=== PATIENT | male | born 1970 | race Caucasian/White ===

== ENCOUNTER 2021-06-21 10:15 | Emergency (ER) | payer BC, SELFPAY ==
[2021-06-21 10:43] VITALS: BP 168/96; PULSE 88; RESP 20; TEMP 36.7; O2SAT 98
[2021-06-21 11:00] VITALS: BP 162/92
--- NOTE | 2021-06-21 11:10 | ED.URI ---
HPI - URI/Sore Throat General Chief Complaint: Upper Respiratory Infection Stated Complaint: Sore Throat and Mouth Time Seen by Provider: 06/21/21 11:10 Source: patient Mode of arrival: ambulatory Limitations: no limitations History of Present Illness HPI Narrative: Pepe Bradley is a 51 yo male with no PMH (as he does not go to the doctor) who comes to [facility] with mild cough but more severe sore throat that is been going on for 4 to 5 days. He has been treating himself as if he has a cold but then looked in the mirror and saw all these pus pockets in the back of his throat and said he should come in to be treated Related Data Allergies Allergy/AdvReac Type Severity Reaction Status Date / Time No Known Allergies Allergy Mild Verified 08/15/08 00:56 Review of Systems Review of Systems: CONSTITUTIONAL: Denies fever, chills, sweats. EYES: Denies visual changes, redness, discharge. ENT: Denies rhinorrhea, mild congestion, has sore throat, no otalgia. CARDIOVASCULAR: Denies chest pain, palpitations, edema. RESPIRATORY: Denies dyspnea, wheezing, cough GASTROINTESTINAL: Denies abdominal pain, nausea, vomiting, diarrhea. GENITOURINARY: Denies dysuria, hematuria, abnormal discharge SKIN: Denies rash or itching. NEUROLOGIC: Denies numbness, or focal weakness. PSYCHIATRIC: Denies anxiety or depression. PMFSH Past Medical History Medical History No acute medical problems Family History Family History Other Hypertension Social History Social History (Updated 06/21/21 @ 11:17 by Ame Martinez CNP) Smoking status: Never smoker Alcohol intake: current Comments At time of signature, I agree with nursing past medical, surgical, social and family history. There is no relevant family history pertinent to the presenting complaint. His blood pressure is elevated and probably needs to be on blood pressure medication. Discussed this with patient and the consequences of not getting on blood pressure medication. He has a referral list from his work work that he can choose a physician Exam Narrative: GENERAL: This is a well-nourished, well-developed patient, in mild distress. HEAD: normocephalic, atraumatic. EYES: Sclera clear/white. Vision is grossly intact. EARS: External ears normal, auditory canals clear and without drainage, TMs normal without perforation. Hearing grossly intact. NOSE: External nose normal without nasal discharge, nares without redness, no rhinorrhea. THROAT: Mucous membranes moist, posterior pharynx erythema with white pockets of pus throughout his posterior pharynx; difficulty swallowing NECK: Neck supple, non-tender CARDIOVASCULAR: Regular rate and rhythm without murmurs, gallops, or rubs. RESPIRATORY: Clear to auscultation. Breath sounds equal bilaterally. No wheezes, rales, or rhonchi. GASTROINTESTINAL: Abdomen soft, non-tender, SKIN: warm, intact with no suspicious lesions or rash, good texture and turgor. NEURO: awake, alert, and oriented to person, place and time. There were no obvious focal neurologic abnormalities. Steady gait EXTREMITIES: Normal range of motion. BACK: Nontender without deformity Course Course Emergency Course: Patient here for complaints of upper respiratory symptoms but has a very sore throat difficulty swallowing Strep test negative is sent for culture-based on physical exam patient treated regardless Treated with amoxicillin 875 mg 1 twice daily and viscous lidocaine to use 3 times daily for eating-discussed control and also reminded patient to follow-up for blood pressure Vital Signs Vital signs: Vital Signs Temperature 98.0 F 06/21/21 10:43 Pulse Rate 88 06/21/21 10:43 Respiratory Rate 20 06/21/21 10:43 Blood Pressure 168/96 H 06/21/21 10:43 Pulse Oximetry 98 06/21/21 10:43 Temperature 98.0 F 06/21/21 10:43 Pulse Rate 88
== END 2021-06-21 11:41 | disposition home or self-care (01) ==
PROVIDERS: Emergency Provider Nurse Practitioner
DX: J02.9 Acute pharyngitis, unspecified (principal)
CPT/HCPCS: 87081; 87880; 99213; G0463

== ENCOUNTER 2022-08-28 21:48 | Inpatient (IN) | payer BC, SELFPAY ==
--- NOTE | ~2022-08-28 | XR_ITS ---
EXAMINATION: XR chest 1V DATE: 08/28/2022 22:10 INDICATION: Left chest pain. TECHNIQUE: A single frontal view of the chest was obtained. COMPARISON: None. FINDINGS: The chest demonstrates clear lungs without pneumonia, pleural effusion, or pneumothorax. Th e heart size is normal. IMPRESSION: 1. No acute cardiopulmonary disease. Reviewed, dictated and finalized at location A. ER
--- NOTE | 2022-08-28 21:49 | ECG_ITS ---
Measurements Intervals [place] Rate: 87 P: 50 NH: 176 QRS: 5 QRSD: 99 T: 94 QT: 347 QTc: 418 Interpretive Statements SINUS RHYTHM ANTERIOR INFARCT, AGE INDETERMINATE ST-T WAVE ABNORMALITY IN HIGH LATERAL LEADS- CONSIDER ISCHEMIA BASELINE ARTIFACT- I, III, AVR, AVL, V2 ABNORMAL ECG NO PREVIOUS ECG AVAILABLE FOR COMPARISON Electronically Signed On 08-30-2022 16:15:55 ROUTE DELIVERY SERVICE DRIVER by Pawel Johnson D.O.
[2022-08-28 21:58] VITALS: BP 154/94; PULSE 94; RESP 16; TEMP 36.2; O2SAT 99
[2022-08-28 22:01] LABS: Basophils Percent Auto 0.3 % (0.2-1.2); Eosinophils Absolute Auto 0.1 K/mm3 (0-0.3); Eosinophils Percent Auto 1.1 % (0-4.4); Hematocrit 49.8 % (42.0-52.0); Hemoglobin 16.8 g/dL (14.0-18.0); Immature Granulocyte Absolute 0.02 K/mm3 (0.00-0.031); Immature Granulocyte Percent A 0.2 % (0-0.5); Lymphocytes Absolute Auto 6.23 K/mm3 (0.9-3.2); Lymphocytes Percent Auto 57.4 % (18.3-44.2); Mean Corpuscular HGB Conc 33.7 g/dl (32-36); Mean Corpuscular Hemoglobin 32.7 pg (26-34); Mean Corpuscular Volume 96.9 fl (80-100); Monocytes Absolute Auto 1.1 K/mm3 (0.1-0.6); Monocytes Percent Auto 9.9 % (2.6-8.5); Neutrophils Absolute Auto 3.4 K/mm3 (1.3-6.7); Neutrophils Percent Auto 31.1 % (45.5-73.1); Platelet Count Result 250 k/mm3 (150-375); Red Blood Count 5.14 M/mm3 (4.6-6.20); Red Cell Distribution Width 12.6 % (11.5-14.5); White Blood Count 10.9 K/mm3 (4.5-10.0)
[2022-08-28 22:12] LABS: Atypical Lymphocytes Present; Platelet Estimate Adequate (Adequate); Prothrombin Time 12.6 Seconds (11.1-14.7); Schistocytes None Seen (NORMAL)
[2022-08-28 22:13] LABS: Alanine Aminotransferase 28 U/L (6-50); Alkaline Phosphatase 92 U/L (38-126); Anion Gap 17 mmol/L (8-16); Aspartate Amino Transferase 32 U/L (17-59); Bilirubin,Total 0.6 mg/dL (0.2-1.3); Blood Urea Nitrogen 13 mg/dL (9-20); Calcium 8.7 mg/dL (8.4-10.2); Carbon Dioxide 23 mmol/L (22-30); Chloride 102 mmol/L (98-107); Estimated CRCL calculation 161 ml/min; Estimated Glomerular Filt Rate > 60; Glucose 139 mg/dL (65-110); Lipase 122 U/L (23-300); Partial Thromboplastin Time 26.3 SECONDS (22.3-36.8); Potassium 3.8 mmol/L (3.4-5.0); Sodium 142 mmol/L (137-145)
[2022-08-28 22:24] LABS: Troponin I < 0.012 ng/mL (0.000-0.034)
[2022-08-28 23:50] VITALS: BP 135/82; PULSE 85; RESP 16; TEMP 36.6; O2SAT 98
[2022-08-29] VITALS (54 sets, daily range): BP systolic 101–147; BP diastolic 59–88; PULSE 75–123; RESP 12–33; TEMP 36.2–36.9; O2SAT 91–100; BMI 41.3
--- NOTE | 2022-08-29 00:31 | ED.CHESTPAIN ---
HPI - Chest Pain General Chief Complaint: Chest Pain Stated Complaint: chest pain, radiated to left side, ASA taken Time Seen by Provider: 08/29/22 00:13 History of Present Illness HPI narrative: 52-year-old male with history of diabetes, HIV and hypertension presented to the emergency department for evaluation of left-sided chest pain. Patient states that approximate 915 he had onset of left-sided chest pain that radiated to his left arm. Patient states he did have some associated nausea and diaphoresis. Patient does have a history of hypertension, diabetes and is HIV positive. Patient denies any prior history of heart disease. Related Data Home Medications Medication Instructions Recorded Confirmed atorvastatin 20 mg tablet 20 mg PO HS 08/29/22 08/29/22 elviteg 150 mg-cob 150 mg-emtricit 1 tablet PO DAILY 08/29/22 08/29/22 200 mg-tenofo alafenam 10 mg tablet (Genvoya) empagliflozin 25 mg tablet 25 mg PO DAILY 08/29/22 08/29/22 (Jardiance) ibuprofen 800 mg tablet 800 mg PO Q6-8H PRN Pain (Scale 08/29/22 08/29/22 Score 1-3) losartan 100 mg tablet 100 mg PO HS 08/29/22 08/29/22 metformin 500 mg tablet,extended 1,000 mg PO HS 08/29/22 08/29/22 release 24 hr multivit with minerals-iron 18 1 tablet PO DAILY 08/29/22 08/29/22 mg-folic ac 400 mcg-vit K 25 mcg tablet (Adults Multivitamin) semaglutide 0.25 mg or 0.5 mg (2 0.5 mg subcut WEEKLY 08/29/22 08/29/22 mg/1.5 mL) subcutaneous pen injector (Ozempic) Allergies Allergy/AdvReac Type Severity Reaction Status Date / Time hydralazine AdvReac Intermediate Palpitation Verified 08/29/22 04:40 s Review of Systems Review of Systems: CONSTITUTIONAL: Denies fever, chills, or sweats. EYES: Denies visual changes, redness, or discharge. ENT: Denies rhinorrhea, congestion, sore throat, or otalgia. CARDIOVASCULAR: See HPI RESPIRATORY: Denies cough or dyspnea. GASTROINTESTINAL: Denies abdominal pain, nausea, vomiting, or diarrhea. GENITOURINARY: Denies dysuria or hematuria. SKIN: Denies rash or itching. MUSCULOSKELETAL: Denies back pain, joint pain, or myalgia. NEUROLOGIC: Denies headache, numbness, or weakness. PMFSH Past Medical History Medical History Benign essential HTN Diabetes mellitus HIV (human immunodeficiency virus infection) Hypertriglyceridemia Perirectal abscess s/p I&D Suicide attempt 2009 Family History Family History Sibling Diabetes mellitus Father Coronary artery disease Hyperlipidemia Myocardial infarct Heart transplant recipient Hypertension Mother Connolly esophagus GERD (gastroesophageal reflux disease) Social History Social History Social History: Lives alone. Lifelong nonsmoker. Denies alcohol or drug use. Full code. He nominates Minnie, his cousin, to be the individual would make medical decisions for him if he is unable. Smoking status: Never smoker Second hand tobacco smoke exposure: No Alcohol intake: never Substance use: never Substance use type: does not use Lack of Transportation: No Lack of Food: Never True Current Housing: I Have Housing Concerned About Future Housing: No Difficulty Paying Gas/Electric Bills: No Difficulty Paying for Meds: No Currently Unemployed: No Education: Bachelor's Degree Difficulty w/ Childcare or Family Care: No Spiritual care concerns: No Exam Narrative: APPEARANCE: Well appearing, no pain, no distress, well-nourished. HEAD: normocephalic, atraumatic. EYES: PERRLA/EOMI, conjunctivae clear. NOSE: Normal no drainage NECK: Supple. No adenopathy, no masses. RESPIRATORY: Airway patent, respirations nonlabored. Clear to auscultation bilaterally, no rales, rhonchi, wheezing. CARDIOVASCULAR: Regular rate and rhythm without murmurs rubs or gallops. ABDOMINAL: Soft, nontender, nondistend
[2022-08-29] MEDS: ASPIRIN 325 MG TABLET PO (01:02)
[2022-08-29] MEDS: NITROGLYCERIN SL 0.4 MG TABLET SUBLINGUAL ×5 (01:04→09:54)
[2022-08-29] MEDS: MORPHINE SULFATE (*CRX) 4 MG/ML INJ IV PUSH ×2 (01:43→07:33)
--- NOTE | 2022-08-29 01:55 | ECG_ITS ---
Measurements Intervals [place] Rate: 84 P: 54 VA: 168 QRS: 22 QRSD: 109 T: 83 QT: 368 QTc: 437 Interpretive Statements SINUS RHYTHM ANTEROSEPTAL INFARCT, AGE INDETERMINATE CONSIDER INFERIOR INFARCT, AGE INDETERMINATE BORDERLINE ST-T WAVE ABNORMALITY- HIGH LATERAL LEADS BASELINE ARTIFACT- V3 ABNORMAL ECG NO PREVIOUS ECG AVAILABLE FOR COMPARISON Electronically Signed On 08-29-2022 7:01:59 MARKETING DEVELOPMENT MANAGER by Pawel Johnson D.O.
[2022-08-29] MEDS: NITROGLYCERIN OINTMENT 1 INCH DOSE TRANSDERM (02:10)
[2022-08-29] MEDS: carvediloL 6.25 MG TABLET PO (02:13)
[2022-08-29 02:49] LABS: SARS-CoV-2 RNA PCR Negative
[2022-08-29] MEDS: ENOXAPARIN 100 MG/ML SYRINGE SUB-Q (03:23)
[2022-08-29] MEDS: ENOXAPARIN 60 MG/0.6 ML SYRINGE 45 MG SUB-Q (03:23)
[2022-08-29] MEDS: CLOPIDOGREL BISULFATE 300 MG TABLET 600 MG PO (03:23)
--- NOTE | 2022-08-29 04:28 | ADMGEN ---
This patient, Pepe Bradley, was admitted to IMU Room 205-01 on 08/29/22 at 0417. Patient/family oriented to hospital policies and general routines including ID bracelet, bed and alarms, visiting hours, pain management, procedures, bathroom and other care routines, personal items, smoking policy, room service/diet, and visiting hours. Information on how to activate the Rapid Response Team has been discussed. Patient/Family are encouraged to report perceived risks to care and to ask questions if they do not understand what they are told or what they should do.
--- NOTE | 2022-08-29 07:30 | ECG_ITS ---
Measurements Intervals [place] Rate: 87 P: 60 RI: 176 QRS: 19 QRSD: 103 T: 78 QT: 349 QTc: 422 Interpretive Statements SINUS RHYTHM VENTRICULAR PREMATURE COMPLEXES ANTEROSEPTAL INFARCT, AGE INDETERMINATE CONSIDER INFERIOR INFARCT, AGE INDETERMINATE BORDERLINE T WAVE ABNORMALITY- HIGH LATERAL LEADS BASELINE ARTIFACT- I, III, AVR, AVL, AVF, V2 ABNORMAL ECG COMPARED TO ECG 08/29/2022 02:01:04 NO SIGNIFICANT CHANGES Electronically Signed On 08-29-2022 14:52:37 FORKLIFT TRUCK OPERATOR by Pawel Johnson D.O.
--- NOTE | 2022-08-29 07:44 | PM.IMHP ---
H&P: HPI History of Present Illness Date/Time: 08/29/22 07:44 Chief Complaint: Chest pain Narrative: 52yo male with DM, HIV and HTN here for chest pain. Patient, while lying in bed, developed chest pressure. This was not associated with exertion. He had nausea with dry heaves. Pain radiated up into his left shoulder. Also states left arm became numb. He was diaphoretic but denies shortness of breath. Chest pain was not pleuritic, palpable or positional. He does not exercise but does do heavy lifting at work and denies any recent complaints of chest pain or shortness of breath. Fernando has no history of coronary disease but does have diabetes, hypertension, hyperlipidemia and family history for early coronary disease. Pain waxed and waned with episodes of spiking pain. No myalgias. He denies headache, vision changes, hearing changes, odynophagia, dysphagia, abdominal pain, cough, diarrhea, constipation, dysuria, hematuria, homicidal or suicidal ideation, numbness/tingling /weakness in his arms or legs prior to the onset of his chest pain. he took aspirin without benefit. He presented to the emergency room for evaluation. In the emergency room he was mildly tachypneic but otherwise vital signs were stable. White count was 11 K with predominant lymphocytosis. PT, PTT and D-dimer all were normal. Glucose was 139 otherwise comprehensive metabolic panel was normal. Troponin was initially normal but has climbed to 1.6. COVID was negative. Chest x-ray was clear. EKG showing normal sinus rhythm, possible old anteroseptal and inferior infarct. He had borderline ST T wave changes in high lateral leads. He was treated with nitroglycerin and aspirin. Pain improved. Morphine was given and his pain resolved. He was given Coreg and loading dose of Plavix and Lovenox. Cardiology was consulted. Patient was admitted for further care. Review of Systems Review of Systems: Patient checks his blood pressure twice a week and running 130/70. This is after his losartan was increased about a month ago. Patient also states that his metformin was increased and Jardiance was added about a month ago. Since that time his glucose has improved 120-140 range that he checks most in the morning. All systems reviewed & are unremarkable except as noted in HPI and below [facility] Past Medical History Medical History (Updated 08/29/22 @ 09:15 by Madi Ely MD) Benign essential HTN Diabetes mellitus HIV (human immunodeficiency virus infection) Hypertriglyceridemia Perirectal abscess s/p I&D Suicide attempt 2009 Family History Family History Sibling Diabetes mellitus Father Coronary artery disease Hyperlipidemia Myocardial infarct Heart transplant recipient Hypertension Mother Connolly esophagus GERD (gastroesophageal reflux disease) Social History Social History (Updated 08/29/22 @ 09:16 by Madi Ely MD) Social History: Lives alone. Lifelong nonsmoker. Denies alcohol or drug use. Full code. He nominates Minnie, his cousin, to be the individual would make medical decisions for him if he is unable. Smoking status: Never smoker Second hand tobacco smoke exposure: No Alcohol intake: never Substance use: never Substance use type: does not use Lack of Transportation: No Lack of Food: Never True Current Housing: I Have Housing Concerned About Future Housing: No Difficulty Paying Gas/Electric Bills: No Difficulty Paying for Meds: No Currently Unemployed: No Education: Bachelor's Degree Difficulty w/ Childcare or Family Care: No Spiritual care concerns: No Meds Home Medications and Allergies Home Medications Medication Instructions Recorded Confirmed Type atorvastatin 20 mg tablet 20 mg PO HS 08/29/22 08/29/22 History elviteg 150 mg-cob 150 mg-emtricit 1 tablet PO DAILY 08/29/22 08/29/22 History 200 mg-tenofo alafenam 10 mg
--- NOTE | 2022-08-29 07:49 | PM.CNCAR ---
Assessment and Plan Assessment and plan (1) Acute non-ST elevation myocardial infarction (NSTEMI): Code(s): I21.4 - Non-ST elevation (NSTEMI) myocardial infarction Status: Acute Plan This is a 52-year-old man with hypertension non insulin-dependent diabetes and dyslipidemia presenting with acute coronary syndrome. His ECG is not concerning as far as acute injury is concerned. He does have poor R-wave progression in the precordial leads but no significant ST segment deviation. Despite treating him with aspirin, nitrates beta-blockers and Lovenox he is having recurrent chest heaviness this morning. His troponin level is also rising moderately. I will at this time plan for coronary angiography a little later today. We would prefer this verses waiting until Wednesday given his recurrent symptoms and rising troponin. Further recommendations will be forthcoming of course following completion of his angiograms. Juwan Cardenas MD [facility] History of Present Illness History of Present Illness Consult date/time: 08/29/22 07:49 Consult reason: chest pain Reason For Visit: NSTEMI Narrative: This is a 52-year-old man I am seeing at the request of the hospitalist with the clinical diagnosis of acute coronary syndrome/non ST elevation TN. The patient is not known to have heart disease prior to this and is unknown to me prior to this consultation this morning. He has began to experience symptoms of chest pain last night while he was at home. He had gone to bed early and it was something like 9:00 p.m. last night when he was lying in bed before he fell asleep and he was starting to notice the onset of some substernal pressure-like chest pain after short time with some radiation into the left arm and some symptoms of nausea. He was dry heaving but nothing came up from his stomach. Was not really having any shortness of breath or diaphoresis. He noticed the symptoms to be of some concern so he got up and drove himself to the emergency room after short time. In the emergency room he was evaluated his electrocardiogram did not show any acute ST segment deviation and he was treated with aspirin, nitrates, morphine and had significant improvement in his pain with near resolution. He was admitted to the IMU and is being seen this morning. His troponin levels have risen from essentially normal up to 1.5 this morning. This morning he is reporting that the sense of pressure in the chest is slowly/gradually building again he does not appear to be in any distress been and not rates the pain about 5/10 of this severity scale. In this setting he is being seen in consultation. He describes no prior history of exertional chest symptoms he is single gentleman who works at [employer] his job does require some significant physical exertion he does not notice any difficulty with chest discomfort or dyspnea that is triggered by activity. He is known to have hypertension and dyslipidemia and non insulin-dependent diabetes. His diabetes is a recent diagnosis and he takes metformin and Januvia for that. Last night when I was called about this in the emergency room he was given a therapeutic dose of Lovenox as well as 600 mg of clopidogrel as well. Review of Systems Constitutional: Constitutional: Reports no additional constitutional complaints Eyes: Eyes: Reports no additional eye complaints ENT: Reports system reviewed and no additional complaints, except as documented Cardiovascular: Cardiovascular: Reports as per HPI Respiratory: Respiratory: Reports no additional respiratory complaints Gastrointestinal: Gastrointestinal: Reports no additional gastrointestinal complaints Musculoskeletal: Musculoskeletal: Reports no additional musculoskeletal complaints Integumentary/Breasts: Skin/Breast: Reports system reviewed and no additional complaints, except as docu Neurologic: Reports system reviewed and no additional complaints, except as documented Endocrine: Endo
[2022-08-29] MEDS: ASPIRIN 81 MG CHEWABLE TABLET PO (08:22)
--- NOTE | 2022-08-29 10:35 | WPDMODSED ---
Moderate Sedation Note-Pt Data Patient Data Diagnosis: non ST-elevation IA Present Complaint: chest pain Procedure to be performed/Plan: left heart catheterization Allergies Allergy/AdvReac Type Severity Reaction Status Date / Time hydralazine AdvReac Intermediate Palpitation Verified 08/29/22 04:40 s Home Medications Medication Instructions Recorded Confirmed Type atorvastatin 20 mg tablet 20 mg PO HS 08/29/22 08/29/22 History elviteg 150 mg-cob 150 mg-emtricit 1 tablet PO DAILY 08/29/22 08/29/22 History 200 mg-tenofo alafenam 10 mg tablet (Genvoya) empagliflozin 25 mg tablet 25 mg PO DAILY 08/29/22 08/29/22 History (Jardiance) ibuprofen 800 mg tablet 800 mg PO Q6-8H PRN Pain (Scale 08/29/22 08/29/22 History Score 1-3) losartan 100 mg tablet 100 mg PO HS 08/29/22 08/29/22 History metformin 500 mg tablet,extended 1,000 mg PO HS 08/29/22 08/29/22 History release 24 hr multivit with minerals-iron 18 1 tablet PO DAILY 08/29/22 08/29/22 History mg-folic ac 400 mcg-vit K 25 mcg tablet (Adults Multivitamin) semaglutide 0.25 mg or 0.5 mg (2 0.5 mg subcut WEEKLY 08/29/22 08/29/22 History mg/1.5 mL) subcutaneous pen injector (Ozempic) Current Medications: Active Medications Aspirin (Aspirin 81 Mg Chewable Tablet) 81 mg PO DAILY@0800 [facility] Last Admin: 08/29/22 08:22 Dose: 81 mg Atorvastatin Calcium (Atorvastatin 20 Mg Tablet) 20 mg PO HS [facility] Dextrose (Dextrose 50% 25 Gm/50 Ml Syringe) 12.5 gm IV PUSH PRN PRN; Protocol PRN Reason: Hypoglycemia Empagliflozin (Empagliflozin 25 Mg Tablet) 25 mg PO DAILY [facility] Glucagon (Glucagon For Inj 1 Mg Vial) 1 mg IM PRN PRN; Protocol PRN Reason: Hypoglycemia Glucose (Glucose Oral Gel 15 Gm Of Glucse In 37.5 Gm Tube) 15 gm PO PRN PRN; Protocol PRN Reason: Hypoglycemia Dextrose (Dextrose 5% 1,000 Ml) 1,000 mls @ 100 mls/hr IVPB PRN PRN; Protocol PRN Reason: Hypoglycemia Insulin Aspart (Insulin Aspart (*Bkc) 100 Units/Ml) 4 - 8 units SUB-Q TIDWM LEXIE; Protocol Miscellaneous Information (Genvoya Is Nonformulary - Please Have Patient Bring From Home) 0 each XX CLARIFY [facility]EXIE Stop: 09/28/22 00:00 Morphine Sulfate (Morphine Sulfate (*Crx) 4 Mg/Ml Inj) 4 mg IV PUSH Q2H PRN PRN Reason: Pain Rated 7-10 Last Admin: 08/29/22 07:33 Dose: 4 mg Multivitamins/Minerals (Multivitamins /C Lutein (Centrum Silver) Tablet *Bkc) 1 tab PO DAILY [facility] Nitroglycerin (Nitroglycerin Sl 0.4 Mg Tablet) 0.4 mg SUBLINGUAL Q5MIN PRN PRN Reason: Chest Pain Last Admin: 08/29/22 09:54 Dose: 0.4 mg Non-Formulary Medication (Qsancgc-Sat-Wwfia-Tenof Alafen [Genvoya]) 1 tablet PO DAILY [facility] Stop: 09/29/22 08:59 Ondansetron HCl (Ondansetron Inj 4 Mg/2 Ml Vial) 4 mg IV PUSH Q4H PRN PRN Reason: Nausea Sedation/Anesthesia: No previous sedation/anesthesia problems (including family history). [facility] Past Medical History Medical History (Updated 08/29/22 @ 09:15 by Madi Ely MD) Benign essential HTN Diabetes mellitus HIV (human immunodeficiency virus infection) Hypertriglyceridemia Perirectal abscess s/p I&D Suicide attempt 2009 Family History Family History Sibling Diabetes mellitus Father Coronary artery disease Hyperlipidemia Myocardial infarct Heart transplant recipient Hypertension Mother Connolly esophagus GERD (gastroesophageal reflux disease) Social History Social History (Updated 08/29/22 @ 09:16 by Madi Ely MD) Social History: Lives alone. Lifelong nonsmoker. Denies alcohol or drug use. Full code. He nominates Minnie, his cousin, to be the individual would make medical decisions for him if he is unable. Smoking status: Never smoker Second hand tobacco smoke exposure: No Alcohol intake: never Substance use: never Substance use type: does not use Lack of Transportation: No Lack of Food: Never True Current Housing: I Have Housing Concerne
[2022-08-29 11:11] LABS: Glucose Point of Care 120 mg/dl (65-105)
--- NOTE | 2022-08-29 12:21 | WPDCARDPROC ---
Cardiac Cath Procedure Note Date of procedure:: 08/29/22 Performing physician:: Juwan Cardenas MD Indication:: acute coronary syndrome / non ST elevation [place] Brief clinical history:: this is a 52-year-old patient without previous knowledge of coronary disease. He entered the hospital in the middle of the night with intermittent chest pain ischemic in nature. He had no acute ECG changes but does have poor R-wave progression. Troponin levels have risen to 1.5. He is still having waxing and waning chest pain despite good medical therapy and in the setting the team has been called in for angiography. Procedure Procedure performed:: Coronary angiography left ventriculography placement of intra-aortic balloon pump Sedation/Medication given:: fentanyl 50 mg Versed mg Access site:: right femoral artery Estimated blood loss:: 50 cc Procedure note:: patient was brought to the cardiac catheterization lab in the postabsorptive state where the right femoral triangle prepared and draped in the normal fashion. Anesthesia was provided with 1% lidocaine infiltrated locally. Using the modified Seldinger technique a 5 [place] sheath was placed into the right common femoral artery after this left heart catheterization was carried out I used a 5 [place] angled pigtail catheter to measure left-sided hemodynamics and to inject LV g in the JARAMILLO projection. After this I engaged the left coronary artery with a 5 [place] FL4 catheter. The engagement of this was not good because of enlargement of the aortic root. I then attempted this with an AL1 and ultimately with an AL3 catheter which provided good engagement of the left main coronary artery for angiography. The cineangiograms were reviewed than the right coronary artery was engaged and injected using a standard 5 [place] JR4 catheter. Following this the decision was made to place an intra-aortic balloon pump because of critical severe 2 vessel coronary disease with poor antegrade filling and plans were made for consideration for transfer to higher level of care for higher risk/ more complex percutaneous revascularization. Findings:: Hemodynamics: Central aortic pressure is 110 over 70 left ventricle 110/10 end-diastolic pressure 18. There was no gradient on pullback across the aortic valve. Left ventricle: The LV is modestly enlarged the inferior wall appears to be moderately hypodynamic the remainder of the LV contracts well the global ejection fraction I would visually estimate to be 50-55%. The left main coronary artery is relatively short and nicely patent the LAD is a moderate size artery that gives rise to a proximal diagonal and then a septal perforating complex after which there is a high-grade 95-99% stenosis in the LAD with angiographically slow flow distal to that down to the apex. There is JOHN 1 flow in the anterior descending after the high-grade lesion. The distal LAD appears to be patent but sluggish and under filled. Circumflex is a large caliber vessel giving rise to marginal branches and a posterior branch the circumflex system has minimal luminal irregularities but no significant lesions are seen. The right coronary artery is large in caliber the proximal mid RCA is nicely patent there is a complex 90-95% stenosis in the distal part of the RCA resulting in sluggish JOHN 1 flow into a very large distal RPDA. Faint collateral filling can be seen from the distal RCA to the anterior descending septals as well. Conclusion:: 1. Right coronary dominant circulation with critical 2 vessel coronary disease involving very high-grade lesions both the LAD after the diagonal and septal branch with sluggish flow into the distal LAD because of this high-grade lesion as well as very high-grade disease in the distal RCA with sluggish antegrade flow into the RPDA. 2. Infero posterior hypokinesia with overall good ejection fraction 3. placement of intra-aortic
--- NOTE | 2022-08-29 12:38 | WPDCNINT ---
Assessment and Plan Assessment and plan (1) Acute non-ST elevation myocardial infarction (NSTEMI): Code(s): I21.4 - Non-ST elevation (NSTEMI) myocardial infarction Status: Acute Assessment and Plan: Status post PCI which showed vessel coronary disease with complicated lesion Intra-aortic balloon pump placed set at 1:1 Continue aspirin statin and heparin infusion Patient is being transferred to outside facility for high risk PCI Cardiology is arranging transfer ICU telemetry monitoring Will defer echocardiogram as patient will be transferred as bed is available (2) Coronary artery disease: Code(s): I25.10 - Atherosclerotic heart disease of [place] coronary artery without angina pectoris Status: Acute Assessment and Plan: See above (3) Hypertriglyceridemia: Code(s): E78.1 - Pure hyperglyceridemia Status: Acute Assessment and Plan: Continue Lipitor lipid profile is ordered and pending (4) Diabetes mellitus: Code(s): E11.9 - Type 2 diabetes mellitus without complications Status: Acute Assessment and Plan: Continue Jardiance and sliding scale insulin (5) HIV (human immunodeficiency virus infection): Code(s): B20 - Human immunodeficiency virus [HIV] disease Status: Acute Assessment and Plan: Home medication of Genvoya Plan DVT prophylaxis -on heparin infusion Stress ulcer prophylaxis - Nutrition -cardiac diet Code Status - Full Code Discussed with Cardiology Total Critical Care Time - 30 minutes Due to a high probability of clinically significant, life threatening deterioration, the patient required my highest level of preparedness to intervene emergently and I personally spent this critical care time directly and personally managing the patient. This critical care time included obtaining a history; examining the patient; pulse oximetry; ordering and review of studies; arranging urgent treatment with development of a management plan; evaluation of patient's response to treatment; frequent reassessment; and discussions with other providers. It was exclusive of separately billable procedures and treating other patients and teaching time. Please see Assessment and Plan section and the rest of the note for further information on patient assessment and treatment Leno Sewer Consult Note Consult date: 08/29/22 Reason for consult: Non ST segment elevation [place], coronary disease HPI: Pepe Bradley is a 52 year old male with DM, HIV and HTN was admitted with chest pain. Pain started while lying in bed and was not associated with exertion.? He had nausea with dry heaves.? Pain was sharp 7 out of 10 in left side of his chest and radiated up into his left shoulder.? Also states left arm became numb.? He was diaphoretic but denies shortness of breath.? In the emergency room he was mildly tachypneic but otherwise vital signs were stable.? White count was 11 K with predominant lymphocytosis.? PT, PTT and D-dimer all were normal.? Glucose was 139 otherwise comprehensive metabolic panel was normal.? Troponin was initially normal but has climbed to 1.6.? COVID was negative.? Chest x-ray was clear.? E KG showing normal sinus rhythm, possible old anteroseptal and inferior infarct.? He had borderline ST T wave changes in high lateral leads.? He was treated with nitroglycerin and aspirin.? Pain improved.? Morphine was given and his pain resolved.? He was given Coreg and loading dose of Plavix and Lovenox.? Cardiology was consulted.? Patient was taken to cardiac catheterization lab and underwent diagnostic cardiac catheterization which showed Conclusion:: 1.? ? Right coronary dominant circulation with critical 2 vessel coronary disease involving very high-grade lesions both the LAD after the diagonal and septal branch with sluggish flow into the distal LAD because of this high-grade lesion as well as very high-grade disease in the distal RCA with sluggis
[2022-08-29 12:53] LABS: Glucose Point of Care 100 mg/dl (65-105)
[2022-08-29] MEDS: SODIUM CHLORIDE 0.9% IV 1,000 ML 125 ML IV CONT (13:09)
[2022-08-29] MEDS: MULTIVITAMINS /C LUTEIN (CENTRUM SILVER) TABLET *BKC 1 TAB PO (14:12)
[2022-08-29] MEDS: EMPAGLIFLOZIN 25 MG TABLET PO (14:12)
[2022-08-29 14:13] LABS: Basophils Percent Auto 0.2 % (0.2-1.2); Eosinophils Percent Auto 0.3 % (0-4.4); Hematocrit 43.6 % (42.0-52.0); Hemoglobin 14.8 g/dL (14.0-18.0); Immature Granulocyte Absolute 0.04 K/mm3 (0.00-0.031); Immature Granulocyte Percent A 0.4 % (0-0.5); Lymphocytes Percent Auto 24.9 % (18.3-44.2); Mean Corpuscular HGB Conc 33.9 g/dl (32-36); Mean Corpuscular Hemoglobin 32.7 pg (26-34); Mean Corpuscular Volume 96.5 fl (80-100); Monocytes Absolute Auto 1.1 K/mm3 (0.1-0.6); Monocytes Percent Auto 10.1 % (2.6-8.5); Neutrophils Absolute Auto 7.2 K/mm3 (1.3-6.7); Neutrophils Percent Auto 64.1 % (45.5-73.1); Platelet Count Result 225 k/mm3 (150-375); Red Blood Count 4.52 M/mm3 (4.6-6.20); Red Cell Distribution Width 12.8 % (11.5-14.5); White Blood Count 11.2 K/mm3 (4.5-10.0)
[2022-08-29 14:27] LABS: INR 1.2; Prothrombin Time 14.2 Seconds (11.1-14.7)
[2022-08-29 14:28] LABS: Partial Thromboplastin Time 45.8 SECONDS (22.3-36.8)
[2022-08-29] MEDS: ACETAMINOPHEN 325 MG TABLET 650 MG PO (14:50)
[2022-08-29] MEDS: HEPARIN SOD/D5W 100 UNITS/ML 25,000 UNITS/250 ML BAG 10 UNITS IV CONT (15:16)
[2022-08-29 21:15] LABS: Glucose Point of Care 111 mg/dl (65-105)
[2022-08-29 21:24] LABS: Partial Thromboplastin Time 30.7 SECONDS (22.3-36.8)
[2022-08-29] MEDS: ATORVASTATIN 20 MG TABLET PO (21:27)
[2022-08-29] MEDS: METOPROLOL TARTRATE 25 MG TABLET PO (21:28)
[2022-08-29] MEDS: HEPARIN SODIUM 5,000 UNITS/ML VIAL 4000 UNITS IV PUSH (21:34)
[2022-08-30] VITALS (13 sets, daily range): BP systolic 110–137; BP diastolic 63–72; PULSE 82–96; RESP 16–34; TEMP 36.4–36.7; O2SAT 93–97
[2022-08-30 04:25] LABS: Basophils Percent Auto 0.2 % (0.2-1.2); Eosinophils Percent Auto 0.1 % (0-4.4); Hematocrit 42.8 % (42.0-52.0); Hemoglobin 14.7 g/dL (14.0-18.0); Immature Granulocyte Absolute 0.04 K/mm3 (0.00-0.031); Immature Granulocyte Percent A 0.4 % (0-0.5); Lymphocytes Percent Auto 19.6 % (18.3-44.2); Mean Corpuscular HGB Conc 34.3 g/dl (32-36); Mean Corpuscular Hemoglobin 32.5 pg (26-34); Mean Corpuscular Volume 94.7 fl (80-100); Mean Platelet Volume 9.3 fl (7.4-10.4); Monocytes Absolute Auto 1.2 K/mm3 (0.1-0.6); Neutrophils Absolute Auto 7.7 K/mm3 (1.3-6.7); Neutrophils Percent Auto 68.7 % (45.5-73.1); Platelet Count Result 214 k/mm3 (150-375); Red Blood Count 4.52 M/mm3 (4.6-6.20); Red Cell Distribution Width 12.6 % (11.5-14.5); White Blood Count 11.2 K/mm3 (4.5-10.0)
[2022-08-30 04:33] LABS: Hemoglobin A1C 6.6 % (<5.7)
[2022-08-30 04:39] LABS: Partial Thromboplastin Time 35.1 SECONDS (22.3-36.8)
[2022-08-30 04:42] LABS: Anion Gap 14 mmol/L (8-16); Blood Urea Nitrogen 12 mg/dL (9-20); Calcium 8.2 mg/dL (8.4-10.2); Carbon Dioxide 21 mmol/L (22-30); Chloride 102 mmol/L (98-107); Cholesterol 177 mg/dL (0-200); Creatine Kinase 529 U/L (55-170); Estimated CRCL calculation 162 ml/min; Estimated Glomerular Filt Rate > 60; Glucose 114 mg/dL (65-110); HDL Direct 38 mg/dL; Potassium 3.9 mmol/L (3.4-5.0); Sodium 137 mmol/L (137-145); Triglycerides 133 mg/dL (<150)
[2022-08-30] MEDS: HEPARIN SODIUM 5,000 UNITS/ML VIAL 4000 UNITS IV PUSH (04:46)
[2022-08-30 04:52] LABS: LDL Cholesterol Direct 98 mg/dL
[2022-08-30 08:00] LABS: Glucose Point of Care 106 mg/dl (65-105)
[2022-08-30] MEDS: METOPROLOL TARTRATE 25 MG TABLET PO (08:11)
[2022-08-30] MEDS: LOSARTAN POTASSIUM 25 MG TABLET PO (08:12)
[2022-08-30] MEDS: MULTIVITAMINS /C LUTEIN (CENTRUM SILVER) TABLET *BKC 1 TAB PO (08:33)
[2022-08-30] MEDS: EMPAGLIFLOZIN 25 MG TABLET PO (08:33)
[2022-08-30] MEDS: ASPIRIN 81 MG CHEWABLE TABLET PO (08:34)
[2022-08-30] MEDS: LACTATED RINGERS 1,000 ML 100 ML IV CONT (08:36)
[2022-08-30] MEDS: HEPARIN SOD/D5W 100 UNITS/ML 25,000 UNITS/250 ML BAG 18 UNITS IV CONT (08:36)
--- NOTE | 2022-08-30 09:31 | WPDINTPN ---
Progress Note: A&P Assessment and Plan (1) Acute non-ST elevation myocardial infarction (NSTEMI): Code(s): I21.4 - Non-ST elevation (NSTEMI) myocardial infarction Status: Acute Assessment and Plan: Status post PCI which showed vessel coronary disease with complicated lesion Intra-aortic balloon pump placed set at 1:1 Continue aspirin, ARB, beta-rocael, statin and heparin infusion Patient is being transferred to outside facility for high risk PCI today Cardiology has arranged transfer Continue ICU telemetry monitoring Resume IV fluids Will defer echocardiogram as patient will be transferred as bed is available (2) Coronary artery disease: Code(s): I25.10 - Atherosclerotic heart disease of [place] coronary artery without angina pectoris Status: Acute Assessment and Plan: See above (3) Hypertriglyceridemia: Code(s): E78.1 - Pure hyperglyceridemia Status: Acute Assessment and Plan: Continue Lipitor lipid profile reviewed (4) Diabetes mellitus: Code(s): E11.9 - Type 2 diabetes mellitus without complications Status: Acute Assessment and Plan: Continue Jardiance and sliding scale insulin (5) HIV (human immunodeficiency virus infection): Code(s): B20 - Human immunodeficiency virus [HIV] disease Status: Acute Assessment and Plan: Home medication of Genvoya (6) Rhabdomyolysis: Code(s): M62.82 - Rhabdomyolysis Status: Acute Assessment and Plan: CK 529 Resume IV fluid Plan DVT prophylaxis -on heparin infusion Stress ulcer prophylaxis - Nutrition -cardiac diet Code Status - Full Code Discussed with Cardiology Total Critical Care Time - 30 minutes Due to a high probability of clinically significant, life threatening deterioration, the patient required my highest level of preparedness to intervene emergently and I personally spent this critical care time directly and personally managing the patient. This critical care time included obtaining a history; examining the patient; pulse oximetry; ordering and review of studies; arranging urgent treatment with development of a management plan; evaluation of patient's response to treatment; frequent reassessment; and discussions with other providers. It was exclusive of separately billable procedures and treating other patients and teaching time. Please see Assessment and Plan section and the rest of the note for further information on patient assessment and treatment Subjective Date/time seen: 08/30/22 Overnight events reviewed. Afebrile Intra-aortic balloon pump in place No new complaints. Patient denies fever, chest pain, shortness of breath, cough, nausea vomiting, abdominal pain,, diarrhea, headache or constipation. All the systems were reviewed and were negative Vitals acceptable Patient on room air Good urine output Tolerating p.o. diet Review of Systems Review of Systems: All systems reviewed & are unremarkable except as noted in HPI and below (HPI) Exam Narrative: General: Pt is alert awake and in NAD Lungs/Chest: Trachea central Clear BS B/L, No crackles or wheezing. Cardiac: RRR. Normal S1 S2. No murmurs intra-aortic balloon pump click Circulation: Bilateral Pedal pulses are intact and symmetrical. Abdomen: Normal bowel sounds.. Soft. NT. ND. Extremities: No clubbing, cyanosis or edema. Warm, intra-aortic balloon pump in right groin with no swelling or hematoma around it : Cheng in place Neurologic: Follows commands. Moves all 4 extremities PERRL AO x3 Skin: No Rash Objective Data Vital Signs Vital Signs: Vital Signs - 24 hr 08/29/22 09:35 08/29/22 09:53 08/29/22 10:43 Temperature Pulse Rate Respiratory Rate Blood Pressure 122/83 115/76 122/82 Pulse Oximetry Oxygen Delivery 08/29/22 10:00 08/29/22 12:40 08/29/22 13:00 Temperature 36.3 C L Pulse Rate 80 89 87 Respiratory Rate 18 Blood Pressure 133/74 121/71
--- NOTE | 2022-08-30 14:43 | PM.TDS ---
Transfer Discharge Sum: Prov Provider Date of admission: 08/29/22 07:59 Primary care physician: Leandra RouseAshley Admitting clinician: Tonja Zepeda DO Consults: 08/29/22 Consult to Physician Routine Comment: Consulting Provider: Juwan Cardenas Reason for consultation: NSTEMI Has provider been notified: Yes DS: Admitting Diagnosis Discharge Date 08/30/22 Admitting Diagnosis Chest pain DS: Discharge Diagnosis Discharge Diagnosis (1) Acute non-ST elevation myocardial infarction (NSTEMI): Code(s): I21.4 - Non-ST elevation (NSTEMI) myocardial infarction Status: Acute (2) Coronary artery disease: Code(s): I25.10 - Atherosclerotic heart disease of [place] coronary artery without angina pectoris Status: Acute (3) Hypertriglyceridemia: Code(s): E78.1 - Pure hyperglyceridemia Status: Acute (4) Diabetes mellitus: Code(s): E11.9 - Type 2 diabetes mellitus without complications Status: Acute (5) HIV (human immunodeficiency virus infection): Code(s): B20 - Human immunodeficiency virus [HIV] disease Status: Acute (6) Rhabdomyolysis: Code(s): M62.82 - Rhabdomyolysis Status: Acute Transfer Discharge Sum: Med Medications Active and Home Medications: Home Medications atorvastatin 20 mg tablet 20 mg PO HS 08/29/22 [History Confirmed 08/29/22] elviteg 150 mg-cob 150 mg-emtricit 200 mg-tenofo alafenam 10 mg tablet (Genvoya) 1 tablet PO DAILY 08/29/22 [History Confirmed 08/29/22] empagliflozin 25 mg tablet (Jardiance) 25 mg PO DAILY 08/29/22 [History Confirmed 08/29/22] ibuprofen 800 mg tablet 800 mg PO Q6-8H PRN Pain (Scale Score 1-3) 08/29/22 [History Confirmed 08/29/22] losartan 100 mg tablet 100 mg PO HS 08/29/22 [History Confirmed 08/29/22] metformin 500 mg tablet,extended release 24 hr 1,000 mg PO HS 08/29/22 [History Confirmed 08/29/22] multivit with minerals-iron 18 mg-folic ac 400 mcg-vit K 25 mcg tablet (Adults Multivitamin) 1 tablet PO DAILY 08/29/22 [History Confirmed 08/29/22] semaglutide 0.25 mg or 0.5 mg (2 mg/1.5 mL) subcutaneous pen injector (Ozempic) 0.5 mg subcut WEEKLY 08/29/22 [History Confirmed 08/29/22] Transfer Discharge Sum: Hosp Hospital Course Hospital course: Pepe Bradley is a 52 year old male with DM, HTN, HLD and HIV here for chest pain. Please see H&P for details. Patient presented to the emergency room for evaluation and was mildly tachypneic but otherwise vital signs were stable.? White count was 11 K with predominant lymphocytosis.? PT, PTT and D-dimer all were normal.? Glucose was 139 otherwise comprehensive metabolic panel was normal.? Troponin was initially normal but has climbed to 1.6.? COVID was negative.? Chest x-ray was clear.? EKG showing normal sinus rhythm, possible old anteroseptal and inferior infarct.? He had borderline ST T wave changes in high lateral leads.? He was treated with nitroglycerin and aspirin.? Pain improved.? Morphine was given and his pain resolved.? He was given Coreg and loading dose of Plavix and Lovenox.? Cardiology was consulted.? Patient was admitted for further care.? Patient began to have recurrent mild chest pain so left heart catheterization was performed on 08/29/2022. This showed right coronary dominant circulation with critical 2 vessel coronary disease involving very high-grade lesions both the LAD after the diagonal and septal branch with sluggish flow into the distal LAD and a high-grade lesion in the distal RCA with sluggish antegrade flow. He had a preserved EF although had inferior-posterior hypokinesis. Please see report for detail. Patient had the placement of an intra-aortic balloon pump and was admitted to the ICU. He was treated with medical management. He was on heparin drip. Arrangements were made and patient was transferred to a tertiary care center on 08/30/2022 in stable condition. Time Spent with Patient Time attestation
== END 2022-08-30 10:48 | disposition short-term general hospital (02) | DRG 271 ==
LOC: ANHED 08-29 02:56 → ANHIMU 08-29 03:45 → ANHICU 08-29 12:54
PROVIDERS: Specialist; Admitting Provider Internal Medicine; Emergency Provider Emergency Medicine; PCP Internal Medicine Infectious Disease; Visit Provider Internal Medicine
PROC: 4A023N7 Measurement of Cardiac Sampling and Pressure, Left Heart, Percutaneous Approach (ICD-10-PCS; CPT 93452; principal; 2022-08-29 11:00)
PROC: 5A02210 Assistance with Cardiac Output using Balloon Pump, Continuous (ICD-10-PCS; 2022-08-29 11:00)
DX: I21.4 Non-ST elevation (NSTEMI) myocardial infarction (principal); B20 Human immunodeficiency virus [HIV] disease; M62.82 Rhabdomyolysis; I25.10 Atherosclerotic heart disease of native coronary artery without angina pectoris; I10 Essential (primary) hypertension; E11.9 Type 2 diabetes mellitus without complications; E78.1 Pure hyperglyceridemia; Z20.822 Contact with and (suspected) exposure to COVID-19; Z79.84 Long term (current) use of oral hypoglycemic drugs; Z79.899 Other long term (current) drug therapy; Z79.85 Long-term (current) use of injectable non-insulin antidiabetic drugs
CPT/HCPCS: 33967; 36415; 71045; 80048; 80053; 80061; 82550; 82948; 83036; 83690; 84484; 85025; 85380; 85610; 85730; 93005; 93458; 96374; 96376; 99291; A9270; C1887; C1894; G0378; J0583; J1644; J1650; J2250; J2270; J3010; J7030; J7040; J7120; U0003; U0005

== ENCOUNTER 2022-10-15 18:00 | Outpatient (RCR) | payer BC, SELFPAY | END 2022-11-02 09:37 | disposition home or self-care (01) | LOC: ANHCPREHAB 18:00 | PROVIDERS: PCP Internal Medicine Infectious Disease; Visit Provider Nurse Practitioner Adult Health | DX: Z95.5 Presence of coronary angioplasty implant and graft (principal) | CPT/HCPCS: 93798 ==

== ENCOUNTER 2023-04-07 04:44 | Observation (INO) | payer BC, SELFPAY ==
[2023-04-07] VITALS (7 sets, daily range): BP systolic 145–179; BP diastolic 69–106; PULSE 82–100; RESP 14–18; TEMP 36.2–37; O2SAT 95–99; BMI 43.2
--- NOTE | ~2023-04-07 | CT_ITS ---
CT of the Abdomen and Pelvis: Indication: Perirectal abscess Technique: 2.5 mm axial scans were obtained through the abdomen and pelvis following intravenous adm inistration of 100 cc of Omnipaque 350. Dose reduction technique was used on this scan by utilizing a utomated exposure control and iterative reconstruction technique. The dose-length product (DLP) was 1 804.79 mGy-cm. Findings: Scans through the lung bases are unremarkable. The liver, spleen, pancreas, gallbladder, adrenals and kidneys are within normal limits. No evidence of aortic aneurysm. No lymphadenopathy. No bowel obstruction or bowel wall thickening. There is no evidence to suggest acute appendicitis. Images through the pelvis were performed. Urinary bladder unremarkable. Prostate gland and seminal ve sicles are unremarkable. No ascites. There is a probable left perianal/perirectal abscess measuring up to approximately 3.8 x 2.4 cm (seri es 301 image 222). There is associated mild infiltrative changes in surrounding subcutaneous fat in t he medial left buttock. Impression: 3.8 x 2.4 cm left perianal/pararectal abscess/phlegmon. Reviewed, dictated and finalized at location . Impression: 3.8 x 2.4 cm left perianal/pararectal abscess/phlegmon.
--- NOTE | 2023-04-07 04:49 | ED.MALEGU ---
HPI - Male Genitourinary General Chief complaint: Skin/Abscess/Foreign Body Stated complaint: kar-rectal abcess Time Seen by Provider: 04/07/23 04:45 Source: patient Mode of arrival: ambulatory Limitations: no limitations History of Present Illness HPI Narrative: Patient is a 52-year-old male with a history of hypertension, hyperlipidemia, coronary artery disease, NSTEMI status post multiple stents, type 2 diabetes, HIV positive, presenting for evaluation with concern for perirectal abscess. Patient reports history of one previously in 2009 that was managed operatively. Patient reports rectal pain that began 4 days ago, increasing in severity. Patient reports moderate pain at the base of the rectum with swelling. He denies any discharge. He reports pain with bowel movements. He denies fever, chills, nausea, vomiting or frontal abdominal pain. He denies diarrhea, constipation, bloody stools. Patient is compliant with his antiretroviral therapy. He denies any rectal trauma. Patient denies dysuria, hematuria, urinary frequency, testicle pain. Related Data Home Medications Medication Instructions Recorded Confirmed elviteg 150 mg-cob 150 mg-emtricit 1 tablet PO DAILY 08/29/22 09/29/22 200 mg-tenofo alafenam 10 mg tablet (Genvoya) empagliflozin 25 mg tablet 25 mg PO DAILY 08/29/22 09/29/22 (Jardiance) losartan 100 mg tablet 100 mg PO HS 08/29/22 09/29/22 metformin 500 mg tablet,extended 1,000 mg PO HS 08/29/22 09/29/22 release 24 hr multivit with minerals-iron 18 1 tablet PO DAILY 08/29/22 09/29/22 mg-folic ac 400 mcg-vit K 25 mcg tablet (Adults Multivitamin) semaglutide 0.25 mg or 0.5 mg (2 0.5 mg subcut WEEKLY 08/29/22 09/29/22 mg/1.5 mL) subcutaneous pen injector (Ozempic) ezetimibe 10 mg tablet 10 mg PO DAILY 09/29/22 09/29/22 prasugrel 10 mg tablet 10 mg PO DAILY 09/29/22 09/29/22 rosuvastatin 40 mg tablet 40 mg PO DAILY 09/29/22 09/29/22 Allergies Allergy/AdvReac Type Severity Reaction Status Date / Time hydralazine AdvReac Intermediate Palpitation Verified 04/07/23 05:10 s Review of Systems Review of Systems: CONSTITUTIONAL: Denies fever, chills, or sweats. EYES: Denies visual changes, redness, or discharge. ENT: Denies rhinorrhea, congestion, sore throat, or otalgia. CARDIOVASCULAR: Denies chest pain, palpitations, or edema. RESPIRATORY: Denies cough or dyspnea. GASTROINTESTINAL: Denies abdominal pain, nausea, vomiting, or diarrhea. GENITOURINARY: Denies dysuria or hematuria. Patient reports rectal pain. SKIN: Denies rash or itching. MUSCULOSKELETAL: Denies back pain, joint pain, or myalgia. NEUROLOGIC: Denies headache, numbness, or weakness. [facility] Past Medical History Medical History Benign essential HTN Diabetes mellitus HIV (human immunodeficiency virus infection) Hypertriglyceridemia Perirectal abscess s/p I&D Suicide attempt 2009 Family History Family History Sibling Diabetes mellitus Father Coronary artery disease Hyperlipidemia Myocardial infarct Heart transplant recipient Hypertension Mother Connolly esophagus GERD (gastroesophageal reflux disease) Social History Social History Social History: Lives alone. Lifelong nonsmoker. Denies alcohol or drug use. Full code. He nominates Minnie, his cousin, to be the individual would make medical decisions for him if he is unable. Smoking status: Never smoker Second hand tobacco smoke exposure: No Alcohol intake: never Substance use: never Substance use type: does not use Lack of Transportation: No Lack of Food: Never True Current Housing: I Have Housing Concerned About Future Housing: No Difficulty Paying Gas/Electric Bills: No Difficulty Paying for Meds: No Currently Unemployed: No Education: Bachelor's Degree Di
[2023-04-07] MEDS: cefTRIAXone 2 GM/NS 100 ML 2 GM/100 ML BAG IVPB (05:23)
[2023-04-07 05:32] LABS: Basophils Percent Auto 0.1 % (0.2-1.2); Eosinophils Percent Auto 0.4 % (0-4.4); Hemoglobin 14.6 g/dL (14.0-18.0); Immature Granulocyte Absolute 0.03 K/mm3 (0.00-0.031); Immature Granulocyte Percent A 0.3 % (0-0.5); Lymphocytes Absolute Auto 1.49 K/mm3 (0.9-3.2); Lymphocytes Percent Auto 16.5 % (18.3-44.2); Mean Corpuscular HGB Conc 34.8 g/dl (32-36); Mean Corpuscular Hemoglobin 32.6 pg (26-34); Mean Corpuscular Volume 93.8 fl (80-100); Mean Platelet Volume 9.4 fl (7.4-10.4); Monocytes Absolute Auto 1.1 K/mm3 (0.1-0.6); Monocytes Percent Auto 12.5 % (2.6-8.5); Neutrophils Absolute Auto 6.3 K/mm3 (1.3-6.7); Neutrophils Percent Auto 70.2 % (45.5-73.1); Platelet Count Result 188 k/mm3 (150-375); Red Blood Count 4.48 M/mm3 (4.6-6.20); Red Cell Distribution Width 11.9 % (11.5-14.5)
[2023-04-07 05:43] LABS: Anion Gap 8 mmol/L (8-16); Blood Urea Nitrogen 12 mg/dL (9-20); CRP 4.8 mg/dL (<1.0); Calcium 8.3 mg/dL (8.4-10.2); Carbon Dioxide 25 mmol/L (22-30); Chloride 100 mmol/L (98-107); Estimated CRCL calculation 191 ml/min; Estimated Glomerular Filt Rate > 60; Glucose 295 mg/dL (65-110); Sodium 133 mmol/L (137-145)
[2023-04-07] MEDS: metroNIDAZOLE 500 MG/ISO 100ML 500 MG/100 ML BAG 100 MG IVPB (06:29)
[2023-04-07] MEDS: LACTATED RINGERS 1,000 ML 125 ML IV CONT ×2 (08:19→16:54)
--- NOTE | 2023-04-07 08:26 | ADMGEN ---
This patient, Pepe Bradley, was admitted to [facility] Surg Room 332-01. Patient/family oriented to hospital policies and general routines including ID bracelet, bed and alarms, visiting hours, pain management, procedures, bathroom and other care routines, personal items, smoking policy, room service/diet, and visiting hours. Information on how to activate the Rapid Response Team has been discussed. Patient/Family are encouraged to report perceived risks to care and to ask questions if they do not understand what they are told or what they should do.
[2023-04-07] MEDS: AMPICILLIN SULB 3 GM/NS 100 ML 3 GM/100 ML VIAL IVPB ×3 (10:20→21:47)
--- NOTE | 2023-04-07 11:09 | PM.IMHP ---
H&P: HPI History of Present Illness Date/Time: 04/07/23 11:09 Chief Complaint: Perirectal abscess Narrative: Patient is a 52-year-old male with a history of hypertension, hyperlipidemia, coronary artery disease, NSTEMI status post multiple stents, type 2 diabetes, HIV positive, presenting for evaluation with concern for perirectal abscess.? Patient reports history of one previously in 2009 that was managed operatively.? Patient reports rectal pain that began 4 days ago, increasing in severity.? Patient reports moderate pain at the base of the rectum with swelling.? He denies any discharge.? He reports pain with bowel movements.? He denies fever, chills, nausea, vomiting or frontal abdominal pain.? He denies diarrhea, constipation, bloody stools.? Patient is compliant with his antiretroviral therapy.? He denies any rectal trauma.? Patient denies dysuria, hematuria, urinary frequency, testicle pain. Review of Systems Review of Systems: CONSTITUTIONAL: Denies fever, chills, or sweats. EYES: Denies visual changes, redness, or discharge. ENT: Denies rhinorrhea, congestion, sore throat, or otalgia. CARDIOVASCULAR: Denies chest pain, palpitations, or edema. RESPIRATORY: Denies cough or dyspnea. GASTROINTESTINAL: Denies abdominal pain, nausea, vomiting, or diarrhea. GENITOURINARY: Denies dysuria or hematuria. Patient reports rectal pain. SKIN: Denies rash or itching. MUSCULOSKELETAL: Denies back pain, joint pain, or myalgia. NEUROLOGIC: Denies headache, numbness, or weakness. [facility] Past Medical History Medical History Benign essential HTN Diabetes mellitus HIV (human immunodeficiency virus infection) Hypertriglyceridemia Perirectal abscess s/p I&D Suicide attempt 2009 Family History Family History Sibling Diabetes mellitus Father Coronary artery disease Hyperlipidemia Myocardial infarct Heart transplant recipient Hypertension Mother Connolly esophagus GERD (gastroesophageal reflux disease) Social History Social History Social History: Lives alone. Lifelong nonsmoker. Denies alcohol or drug use. Full code. He nominates Minnie, his cousin, to be the individual would make medical decisions for him if he is unable. Smoking status: Never smoker Second hand tobacco smoke exposure: No Alcohol intake: never Substance use: never Substance use type: does not use Lack of Transportation: No Lack of Food: Never True Current Housing: I Have Housing Concerned About Future Housing: No Difficulty Paying Gas/Electric Bills: No Difficulty Paying for Meds: No Currently Unemployed: No Education: Bachelor's Degree Difficulty w/ Childcare or Family Care: No Spiritual care concerns: No Meds Home Medications and Allergies Home Medications Medication Instructions Recorded Confirmed Type elviteg 150 mg-cob 150 mg-emtricit 1 tablet PO DAILY 08/29/22 04/07/23 History 200 mg-tenofo alafenam 10 mg tablet (Genvoya) empagliflozin 25 mg tablet 25 mg PO DAILY 08/29/22 04/07/23 History (Jardiance) losartan 100 mg tablet 100 mg PO HS 08/29/22 04/07/23 History metformin 500 mg tablet,extended 1,000 mg PO HS 08/29/22 04/07/23 History release 24 hr multivit with minerals-iron 18 1 tablet PO DAILY 08/29/22 04/07/23 History mg-folic ac 400 mcg-vit K 25 mcg tablet (Adults Multivitamin) semaglutide 0.25 mg or 0.5 mg (2 0.5 mg subcut WEEKLY 08/29/22 04/07/23 History mg/1.5 mL) subcutaneous pen injector (Ozempic) ezetimibe 10 mg tablet 10 mg PO DAILY 09/29/22 04/07/23 History prasugrel 10 mg tablet 10 mg PO DAILY 09/29/22 04/07/23 History rosuvastatin 40 mg tablet 40 mg PO HS 09/29/22 04/07/23 History metoprolol tartrate 25 mg tablet 25 mg PO Q12H 04/07/23 04/07/23 History Allergies Allergy/AdvReac Type Severity [place]
[2023-04-07 11:20] LABS: Glucose Point of Care 284 mg/dl (65-105)
[2023-04-07] MEDS: INSULIN ASPART (*BKC) 100 UNITS/ML SUB-Q ×2 (11:49→16:54)
--- NOTE | 2023-04-07 13:33 | PM.CNGS ---
Assessment and Plan Assessment and plan (1) Myesha-rectal abscess: Code(s): K61.1 - Rectal abscess Status: Acute Assessment and Plan: CT reviewed, exam benign at this point, continue antibiotics, recheck in a.m. and if the area becomes more fluctuant will proceed to OR for complex incision and drainage (2) HIV (human immunodeficiency virus infection): Code(s): B20 - Human immunodeficiency virus [HIV] disease Status: Acute Assessment and Plan: stable, continue antiretrovirals the medical management History of Present Illness Consult details Consult date: 04/07/23 Reason for consult: wound care Requesting physician: Shelly Campuzano MD Narrative: The patient is a 52-year-old male with history of HIV presenting to the emergency department complaining of left perirectal pain. Patient reports that the symptoms have been going on the last few days and seems to be worsening. The patient reports some minimal drainage, however reports the swelling and pain have increased. Of note, the patient had previous abscess in the same area requiring drainage years ago. The patient denies any systemic symptoms at this time, including fevers, chills, nausea, vomiting. Review of Systems Constitutional: Constitutional: Reports as per HPI, Denies anorexia, Denies chills, Denies fatigue, Denies fever(s), Denies lethargy, Denies malaise, Denies poor appetite, Denies weakness, Denies weight gain and Denies weight loss Eyes: Eyes: Reports no additional eye complaints ENT: Reports system reviewed and no additional complaints, except as documented Cardiovascular: Cardiovascular: Reports no additional cardiovascular complaints Respiratory: Respiratory: Reports no additional respiratory complaints Gastrointestinal: Gastrointestinal: Reports no additional gastrointestinal complaints Genitourinary: Genitourinary: Reports no additional male genitourinary complaints Musculoskeletal: Musculoskeletal: Reports no additional musculoskeletal complaints Integumentary/Breasts: Skin/Breast: Reports as per HPI Neurologic: Reports system reviewed and no additional complaints, except as documented Psychiatric: Psychiatric: Reports no additional psychiatric complaints Endocrine: Endocrine: Reports no additional endocrine complaints Hematologic/Lymphatic: Hematologic/Lymphatic: Reports no additional hematologic/lymphatic complaints Allergic/Immunologic: Allergic/Immunologic: Reports no additional allergic/immunologic complaints PMFSH Past Medical History Medical History Benign essential HTN Diabetes mellitus HIV (human immunodeficiency virus infection) Hypertriglyceridemia Perirectal abscess s/p I&D Suicide attempt 2009 Family History Family History Sibling Diabetes mellitus Father Coronary artery disease Hyperlipidemia Myocardial infarct Heart transplant recipient Hypertension Mother Connolly esophagus GERD (gastroesophageal reflux disease) Social History Social History Social History: Lives alone. Lifelong nonsmoker. Denies alcohol or drug use. Full code. He nominates Minnie, his cousin, to be the individual would make medical decisions for him if he is unable. Smoking status: Never smoker Second hand tobacco smoke exposure: No Alcohol intake: never Substance use: never Substance use type: does not use Lack of Transportation: No Lack of Food: Never True Current Housing: I Have Housing Concerned About Future Housing: No Difficulty Paying Gas/Electric Bills: No Difficulty Paying for Meds: No Currently Unemployed: No Education: Bachelor's Degree Difficulty w/ Childcare or Family Care: No Spiritual care concerns: No Comments PSxH - previous I and D perirectal abscess Meds Home Medications and Allergies
[2023-04-07 16:42] LABS: Glucose Point of Care 238 mg/dl (65-105)
[2023-04-07] MEDS: ACETAMINOPHEN 325 MG TABLET 650 MG PO (16:58)
[2023-04-07 20:28] LABS: Glucose Point of Care 252 mg/dl (65-105)
[2023-04-07] MEDS: ROSUVASTATIN 10 MG TABLET 40 MG PO (21:48)
[2023-04-07] MEDS: METOPROLOL TARTRATE 25 MG TABLET PO (21:49)
[2023-04-07] MEDS: LOSARTAN POTASSIUM 100 MG TABLET PO (21:49)
[2023-04-08] MEDS: LACTATED RINGERS 1,000 ML 125 ML IV CONT (03:47)
[2023-04-08] MEDS: AMPICILLIN SULB 3 GM/NS 100 ML 3 GM/100 ML VIAL IVPB ×2 (03:49→08:39)
[2023-04-08 05:46] VITALS: BP 160/89; PULSE 81; RESP 14; TEMP 36.1; O2SAT 96
[2023-04-08 07:31] LABS: Glucose Point of Care 232 mg/dl (65-105)
--- NOTE | 2023-04-08 07:35 | PM.PNGS ---
Progress Note: A&P Assessment and Plan (1) Myesha-rectal abscess: Code(s): K61.1 - Rectal abscess Status: Acute Assessment and Plan: spontaneously drained, cont local wound care and abx, cancel OR at this point Subjective Subjective Date/Time Seen: 04/08/23 07:35 Interval history: area opened spontaneously yesterday, pain and swelling improved Review of Systems Review of Systems: All systems reviewed & are unremarkable except as noted in HPI and below Exam Const: General: cooperative, comfortable and no acute distress Resp: Auscultation: clear to auscultation bilaterally GI: Inspection: normal to inspection Back/Spine/Pelvis: Other: L perirectal abscess - opened and draining, decreased induration, mild TTP Objective Data Vital Signs Vital Signs: Vital Signs - 24 hr 04/07/23 08:00 04/07/23 14:00 04/07/23 21:49 Temperature 36.2 C L Pulse Rate 98 84 Respiratory Rate 18 Blood Pressure 147/83 H Pulse Oximetry 95 Oxygen Delivery Room Air 04/07/23 21:48 04/07/23 20:00 04/08/23 05:46 Temperature 36.8 C 36.1 C L Pulse Rate 82 84 81 Respiratory Rate 14 14 14 Blood Pressure 145/77 H 160/89 H Pulse Oximetry 96 96 96 Oxygen Delivery Room Air Intake/Output Intake/Output: Intake & Output 04/05/23 04/06/23 04/07/23 04/08/23 23:59 23:59 23:59 23:59 Intake Total 2684 1240 Balance 2684 1240 Meds/Results Medications: Active Medications Generic Name Dose Route Start Last Admin Trade Name Freq PRN Reason Stop Dose Admin Acetaminophen 650 mg 04/07/23 06:37 04/07/23 16:58 Acetaminophen 325 Mg Tablet PO 650 mg Q4H PRN Administration Mild Pain (1-3) or Fever Dextrose 12.5 gm 04/07/23 08:57 Dextrose 50% 25 Gm/50 Ml Syringe IV PUSH PRN PRN Hypoglycemia Protocol Ezetimibe 10 mg 04/07/23 09:00 04/07/23 10:20 Ezetimibe 10 Mg Tablet PO Not Given DAILY LEXIE Glucagon 1 mg 04/07/23 08:57 Glucagon For Inj 1 Mg Vial IM PRN PRN Hypoglycemia Protocol Glucose 15 gm 04/07/23 08:57 Glucose Oral Gel 15 Gm Of Glucse In 37.5 Gm Tube PO PRN PRN Hypoglycemia Protocol Lactated Ringer's 1,000 mls @ 125 mls/hr 04/07/23 06:40 04/08/23 03:47 Lr - Lactated Ringers Iv IV CONT 125 mls/hr .Q8H LEXIE Administration Ampicillin Sodium/Sulbactam Sodium 3 gm in 100 mls @ 200 mls/hr 04/07/23 09:00 04/08/23 03:49 Unasyn 3 Gm/Ns 100 Ml IVPB 200 mls/hr Q6H LEXIE Administration Dextrose 1,000 mls @ 100 mls/hr 04/07/23 08:57 Dextrose 5% 1,000 Ml IVPB PRN PRN Hypoglycemia Protocol Insulin Aspart 0 units 04/07/23 12:00 04/07/23 16:54 Insulin Aspart (*Bkc) 100 Units/Ml SUB-Q 4 units TIDWM LEXIE Administration Protocol Losartan Potassium 100 mg 04/07/23 21:00 04/07/23 21:49 Losartan Potassium 100 Mg Tablet PO 100 mg HS LEXIE Administration Metoprolol Tartrate 25 mg 04/07/23 09:00 04/07/23 21:49 Metoprolol Tartrate 25 Mg Tablet PO 25 mg Q12H LEXIE Administration Miscellaneous Information 0 each 04/07/23 00:01 Genvoya Nonform Can Pt Bring From Home? XX 05/07/23 00:00 CLARIFY LEXIE Non-Formulary Medication 1 tablet 04/08/23 09:00 Rjpkrwb-Jcd-Fttri-Tenof Alafen [Genvoya] PO 05/08/23 08:59 DAILY LEXIE Rosuvastatin Calcium 40 mg 04/07/23 21:00 04/07/23 21:48 Rosuvastatin 10 Mg Tablet PO 40 mg HS LEXIE Administration Radiology Results: ITS Impressions Abdomen/Pelvis CT 04/07/23 06:18 Impression: 3.8 x 2.4 cm left perianal/pararectal abscess/phlegmon. Labs Labs: Laboratory Results - last 24 hr 04/07/23 04/07/23 04/07/23 11:12 16:33 20:12 POC Capillary Glucose 284 H 238 H 252 H 04/08/23 07:23 POC Capillary Glucose 232 H
[2023-04-08 08:43] VITALS: PULSE 84
[2023-04-08] MEDS: EZETIMIBE 10 MG TABLET PO (08:43)
[2023-04-08] MEDS: METOPROLOL TARTRATE 25 MG TABLET PO (08:43)
[2023-04-08] MEDS: INSULIN ASPART (*BKC) 100 UNITS/ML SUB-Q ×2 (08:44→12:56)
--- NOTE | 2023-04-08 12:02 | PM.DS ---
DS: Admitting Diagnosis Discharge Date 04/08/2023 Admitting Diagnosis perirectal abscess DS: Discharge Diagnosis Discharge Diagnosis (1) Myesha-rectal abscess: Code(s): K61.1 - Rectal abscess Status: Acute DS: Summary Hospital Course Hospital Course: (1) Myesha-rectal abscess: patient admitted with perirectal abscess. He was started on IV Unasyn. General surgery was consulted. Initial plan was to take him to OR for debridement. he spontaneously drained, cont local wound care and abx, cancel OR at this point. Patient is clinically stable and can be discharged home. He is being discharged home on oral Augmentin Time Spent with Patient Time attestation: Total time spent providing and/or coordinating discharge services: DS: Data Data Completed and Pending Labs on day of discharge: Labs from last 24 hours 04/08/23 04/07/23 04/07/23 07:23 20:12 16:33 POC Capillary Glucose 232 H 252 H 238 H Discharge Plan Discharge Consulting providers: Radha Ramos Discharging Clinician: Andrzej Giordano Anticipated Discharge Date/Time: 04/08/23 12:01 Patient Disposition: Home, Self-Care Activity: no preference Diet: regular Patient Instructions: Antibiotic Form Stand Alone Forms: General Discharge Information Follow-up/Referrals: Nasim,Ashley Mobley [Primary Care Provider] - Radha Ramos MD [Physician] - Discharge Medications: New amoxicillin-pot clavulanate 875-125 mg tablet 1 tablet PO Q12H Qty: 10 0RF Continued losartan 100 mg tablet 100 mg PO HS metformin 500 mg tablet extended release 24 hr 1,000 mg PO HS Jardiance 25 mg tablet 25 mg PO DAILY Ozempic 0.25 mg or 0.5 mg(2 mg/1.5 mL) pen injector 0.5 mg SUBCUT WEEKLY Rx Instructions: Pt takes on Sundays Genvoya [phone] mg Tablet 1 tablet PO DAILY Rx Instructions: must administer with a meal/food Adults Multivitamin 18 mg iron-400 mcg-25 mcg Tablet 1 tablet PO DAILY rosuvastatin 40 mg Tablet 40 mg PO HS prasugrel 10 mg Tablet 10 mg PO DAILY ezetimibe 10 mg Tablet 10 mg PO DAILY metoprolol tartrate 25 mg tablet 25 mg PO Q12H Date of admission: 04/07/23 06:38 Primary Care Provider: NasimLeandra Admitting Provider: Shelly Campuzano V. Attending physician on admission: Shelly Campuzano V. Condition: Stable
[2023-04-08 12:11] LABS: Glucose Point of Care 255 mg/dl (65-105)
== END 2023-04-08 13:20 | disposition home or self-care (01) ==
LOC: ANHED 05:35 → ANH3MEDSUR 10:44
PROVIDERS: Internal Medicine; Admitting Provider Hospitalist; Emergency Provider Emergency Medicine; PCP Internal Medicine Infectious Disease; Visit Provider Hospitalist
DX: K61.1 Rectal abscess (principal); B20 Human immunodeficiency virus [HIV] disease; I10 Essential (primary) hypertension; E78.5 Hyperlipidemia, unspecified; I25.10 Atherosclerotic heart disease of native coronary artery without angina pectoris; Z95.5 Presence of coronary angioplasty implant and graft; Z86.74 Personal history of sudden cardiac arrest; E11.65 Type 2 diabetes mellitus with hyperglycemia; E66.9 Obesity, unspecified; Z68.41 Body mass index [BMI] 40.0-44.9, adult; Z79.84 Long term (current) use of oral hypoglycemic drugs; Z79.85 Long-term (current) use of injectable non-insulin antidiabetic drugs; Z79.899 Other long term (current) drug therapy; Z83.438 Family history of other disorder of lipoprotein metabolism and other lipidemia; Z82.49 Family history of ischemic heart disease and other diseases of the circulatory system; Z83.3 Family history of diabetes mellitus
CPT/HCPCS: 36415; 74177; 80048; 82948; 85025; 86140; 96361; 96365; 96367; 99285; A9270; G0378; J0295; J0696; J1815; J7120; Q9967